=== PATIENT | male | born 1955 | race Two or more races ===

== ENCOUNTER 2019-02-14 08:44 | Emergency (ER) | payer OTHER ==
[~2019-02-14] VITALS: Ht 167.6 cm; Wt 64.9 kg
[2019-02-14] MEDS ORDERED: SKELAXIN800 MG PO (09:22)
[2019-02-14] MEDS ORDERED: NAPROXEN500 MG PO (09:22)
== END 2019-02-14 09:45 | disposition home or self-care (01) ==
LOC: ER 08:44
DX: S70.11XA Contusion of right thigh, initial encounter (principal); S80.01XA Contusion of right knee, initial encounter; W18.39XA Other fall on same level, initial encounter; Y93.89 Activity, other specified; Y92.89 Other specified places as the place of occurrence of the external cause; Y99.8 Other external cause status